=== PATIENT | female | born 1980 | race Caucasian/White ===

== ENCOUNTER 2016-12-22 15:10 | Emergency (ER) | payer SELFPAY ==
--- NOTE | 2016-12-31 16:38 | ER ---
ADMIT: 12/22/2016 RM/LOC: ER [facility] MR#: [id number] [address] [id number] [place] [address] [place] [id number] Emergency Room Report SEX: F AGE: 36 : 1980 DATE: 12/22/2016 ADDENDUM: This patient comes to the ER because for the last few months she has had really heavy bleeding. She had a D and C in July, and since then, her periods have been irregular. Her regular physician has been having her take iron. This period has lasted for 2 weeks. It is a heavy period, which she normally has heavy periods and she is having cramping. She is just concerned about the length of the frame of her period. She has had no fevers. On physical exam, she does have stable vital signs. She is obese. Her abdomen is soft. Her CBC and BMP were normal. test was negative. She was given tramadol and Toradol, which completely took her cramps away. I did write a prescription for Provera, and she does have an appointment with Dr. Sanchez, to discuss her irregular periods and heavy bleeding. Please see my T-sheet. LACEY Maharaj / Mak Dutta MD / jolie JOB #: [id number] CC: Mak Dutta MD, Attending Physician UNKNOWN, Family Physician
== END 2016-12-22 17:05 | disposition home or self-care (01) ==
LOC: ER 15:10
DX: N93.8 Other specified abnormal uterine and vaginal bleeding (principal); J45.909 Unspecified asthma, uncomplicated; Z90.49 Acquired absence of other specified parts of digestive tract; Z90.89 Acquired absence of other organs; Z98.890 Other specified postprocedural states; Z79.899 Other long term (current) drug therapy